=== PATIENT | female | born 1975 | race Caucasian/White ===

== ENCOUNTER → 2018-02-09 | Outpatient (CLI) | payer OTHER ==
[2015-09-28 12:09] VITALS: BP 135/84
--- NOTE | 2018-02-09 10:13 | RAD ---
MRI Lumbar Spine without contrast History: Chronic pain, bilateral leg radiculopathy Technique: Multiplanar, multi sequential noncontrast MR imaging was performed of the lumbar spine. Contrast: None Comparison: None Findings: There is motion degradation. Lumbar vertebral body stature is overall maintained. There is negligible grade 1 anterior spondylolisthesis at L5-S1. There is mild degenerative disc disease L5-S1. There is also degenerative disc disease with associated degenerative endplate change at T11-T12, fairly prominent endplate edema at this level. There is no fluid in the intervertebral disc space. Conus terminates at the L1 level. There is trace L5-S1 endplate edema. T11-12: This level was not included on the axial images. There is minimal posterior disc osteophyte complex with mild indentation upon the ventral thecal sac. There is also facet degenerative change and buckling of the ligamentum flavum at this level greater on the right contributing to moderate posterior narrowing of the right neural foramen, very mild posterior narrowing on the left. L2-L3: Spinal canal and neural foramina are adequate. There is mild to moderate facet hypertrophic change. L3-L4: There is moderate facet degenerative change and mild buckling of the ligamentum flavum. Neural foramina and spinal canal are adequate. L4-L5: There is moderate facet hypertrophic change and mild buckling of the ligamentum flavum. There is mild narrowing of the far lateral recesses greater on the left. Neural foramina are adequate. L5-S1: There is moderate to severe left greater than right facet degenerative change. Spinal canal is adequate. There is disc osteophyte complex and protrusion in the inferior left neural foramen, moderate to severe narrowing of the left neural foramen with contact of the exiting left L5 nerve root. There is minimal narrowing of the inferior right neural foramen. Impression: 1. There is moderate to severe narrowing of the left L5-S1 neural foramen with contact exiting left L5 nerve root. There is minimal narrowing of the right L5-S1 neural foramen. 2. There is no significant lumbar spinal stenosis, minimal narrowing of the far lateral recesses greater on the left L4-5. 3. There is multilevel lumbar facet degenerative change, negligible anterior spondylolisthesis L5-S1. 4. There is degenerative disc disease with associated prominent endplate edema at T11-12. There is narrowing of the posterior right T11-12 neural foramen due to facet degenerative change and buckling of the ligamentum flavum. Electronically signed by: Mani Estrada MD (02/09/2018 10:09 AM) [id number]
== END | disposition home or self-care (01) ==
LOC: MRI 09:01
PROVIDERS: ATTEND Family Medicine
DX: M48.07 Spinal stenosis, lumbosacral region (principal); M51.37 Other intervertebral disc degeneration, lumbosacral region; M48.04 Spinal stenosis, thoracic region; M47.817 Spondylosis without myelopathy or radiculopathy, lumbosacral region; M25.78 Osteophyte, vertebrae; R60.0 Localized edema
CPT/HCPCS: 72148

== ENCOUNTER → 2019-11-20 | Outpatient (CLI) | payer MEDICAID ==
[2015-09-28 12:09] VITALS: BP 135/84
--- NOTE | 2019-11-20 11:35 | RAD ---
MRI Lumbar Spine without contrast History: Lumbar radiculopathy right greater than left Technique: Multiplanar, multi sequential noncontrast MR imaging was performed of the lumbar spine. Comparison: February 09, 2018 Findings: There is motion degradation. Lumbar vertebral body stature is maintained. There is again negligible anterior spondylolisthesis L5-S1. There is again mild L5-S1 degenerative disc disease. There is again degenerative endplate change eccentric to the right at L5-S1, also to a greater degree at T11-T12 at which there is some associated endplate edema as seen previously. There is nonspecific edema posterior subcutaneous fat of the lower back. Conus terminates near L1. T11-12: This level was not included on the axial images. There is again minimal disc osteophyte complex and bulge slightly indenting the ventral thecal sac without significant spinal stenosis. Facet degenerative change contributes to likely at least moderate narrowing of the right neural foramen, likely mild narrowing on the left. L1-2, L2-3: These levels were not included on the axial images, neural foramina and spinal canal not significantly narrowed. L3-L4: There is facet degenerative change and buckling of the ligamentum flavum. Neural foramina and spinal canal are overall adequate. L4-L5: There is again moderate facet degenerative change and buckling of the ligamentum flavum. There is again mild narrowing of the far lateral recesses greater on the left. Neural foramina are overall adequate. L5-S1: There is again moderate to severe facet degenerative change. There is a minimal disc osteophyte complex. Spinal canal is not significantly narrowed. There is mild narrowing of the right neural foramen greater distally, also contact undersurface exiting right L5 nerve root in the proximal extraforaminal region by minimal disc osteophyte complex. There is again moderate to severe narrowing of the left neural foramen greater distally with contact undersurface exiting left L5 nerve root by disc osteophyte complex and protrusion. Impression: 1. Findings are similar compared with previous February 2018 exam. There is no new significant lumbar spinal stenosis, similar minimal narrowing of the far lateral recesses at L4-5. There is again mild L5-S1 degenerative disc disease, to a greater degree at T11-12 at which there is again endplate edema. There is again left greater than right L5-S1 neural foramina compromise with contact exiting L5 nerve roots greater on the left as described. Electronically signed by: Mani Estrada MD (11/20/2019 11:31 AM) [id number]
--- NOTE | 2019-11-20 12:56 | RAD ---
EXAM: MRI LEFT KNEE DATE: 11/20/2019 11:15 AM CLINICAL INDICATION: MEDIAL LEFT KNEE PAIN POST FALL THIS WINTER COMPARISON: None. TECHNIQUE: Multiplanar, multisequence MRI of the left knee was performed without contrast. FINDINGS: This exam is limited by motion artifact despite repeating sequences. No knee joint effusion. No Estes's cyst. The ACL and PCL are intact. The MCL, fibular collateral ligament, biceps femoris, IT band and popliteus are intact, normal in signal and morphology. Mild patellar tilt and lateral patellar tracking. Extensor mechanism is intact. Medial meniscus: Intact Lateral meniscus: Intact T1 marrow signal is grossly preserved. No evidence for fracture or osteonecrosis. Articular cartilage is grossly preserved. IMPRESSION: 1. Within the constraints of motion artifact, no MRI evidence for internal derangement. Specifically no evidence for fracture. 2. Mild lateral patellar tracking with patellar tilt. Electronically signed by: Dirk Drake MD (11/20/2019 12:53 PM) [id number]
== END | disposition home or self-care (01) ==
LOC: MRI 09:48
PROVIDERS: ATTEND Orthopaedic Surgery
DX: M25.562 Pain in left knee (principal); M43.17 Spondylolisthesis, lumbosacral region; M51.37 Other intervertebral disc degeneration, lumbosacral region; M25.78 Osteophyte, vertebrae; M47.27 Other spondylosis with radiculopathy, lumbosacral region
CPT/HCPCS: 72148; 73721

== ENCOUNTER → 2020-02-09 | Outpatient (CLI) | payer MEDICAID ==
[2015-09-28 12:09] VITALS: BP 135/84
[~2020-02-09] MED LIST: IBUP-1060 PO; IOHEXOL 180 MG/ML 10 ML VIAL. ONE; methylPREDNISolone ACETATE 40 MG/ML VIAL. ONE; methylPREDNISolone ACETATE 80 MG/ML VIAL. ONE
--- NOTE | 2020-02-09 10:45 | PDOC1 ---
INITIAL PAIN CONSULT DATE OF SERVICE: DOS: DATE: 02/09/20 TIME: 10:39 CHIEF COMPLAINT: Chief Complaint: Low back and right lower extremity pain HISTORY OF PRESENT ILLNESS: 44-year-old female presents history of pain low back bilateral lower extremities right greater than left for about 2 years. Patient reports no specific injury or accident that she is aware of the pain is been getting worse for about 2 yea rs gradually increasing radiating across the low back into the bilateral lower extremities posterior gluteus posterior thigh posterior calf and lateral thigh on the right side. Patient reports it is getting worse with time is described as stabbing throbbing shooting burning and cramping aching across the low back and radiating to the lower extremities. Patient reports it wakes her from sleep at night least once or twice does not affect her bowel bladder control it does affect ability to walk with significant fatigability in the lower extremities with no muscle or motor loss. Patient rates her disability rating 0-10 10 being the worst is a 9 with him home responsibilities 7 with recreation social activity occupation and sexual behavior 5 with self-care and life support activities. She did have an MRI scan of the lumbar spine showing similar findings 2 in February 2018 exam with L4-5 showing moderate facet degenerative change and buckling of ligamentum flavum with mild narrowing the far lateral recesses greater on the left L5-S1 shows moderate to severe facet degenerative change with minimal disc osteophyte complex mild narrowing of the right neural foramen greater distally also contacting the undersurface exiting right L5 nerve root in the proximal extraforaminal region. 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 Extraocular movements are intact and symmetrical. Oral cavity: Mucous membranes moist and pink. Dentition is intact. NECK: Shows anterior throat supple without palpable lymphadenopathy noted. Swallow reflex symmetrical. CHEST: Shows normal on inspection. Breath sounds are clear bilaterally, no rales rhonchi or wheezes auscultated. HEART: Shows S1, S2 clear. No murmurs auscultated. ABDOMEN: Soft, nontender, nondistended ,obese. No palpable organomegaly is noted. No rebound or guarding demonstrated. BACK: Shows spine grossly in the midline. Normal-appearing cervical lordotic curvature. There is slightly increased thoracic kyphosis, some minor flattening of the lumbar lordotic curvature. Lumbar paraspinous muscles show symmetrical on inspection, on palpation shows some moderate tenderness diffusely throughout the upper, middle and lower distribution of the paraspinous muscles bilaterally, but without specific trigger points, without radiation of pain. The patient has good rotational motion of the lumbar spine, both laterally as well as extension and flexion without significant difficulty. No tenderness over the spinous processes, sacrum or sacroiliac regions. EXTREMITIES: Lower extremities show deep tendon reflexes 2+ in the patellar and tendo calcaneus tendons. Motor exam is 4 on a scale of 5 with right dorsiflexion, extension, quadriceps and hamstring flexion and 5/5 on the left. Peripheral pulses are 1+ posterior tibial. No peripheral edema is noted bilaterally. Lower extremities are warm and dry to touch, equal in color and appearance. Straight leg raise noted to be positive on the right about 40 degrees, left side is negative. Gaenslen's and Jeff's maneuvers are negative as well. The patient is able to stand, stand on her toes without difficulty or loss of balance walks with a normal-appearing gait does not appear to favor the right or left lower extremity significantly and is not use any assistive devices to ambulate.. SKIN: Shows warm and dry, good turgor. No edema. No sores, rashes or bruising throughout. IMPRESSION: Impression: 44-year-old female with 2-year history of increasing pain low back bilateral lower extremities right greater than left in a radicular fashion MRI scan lumbar spine as noted Arthritis Hepatitis C Cigarette smoking Plan: Options were discussed with patient including conservative medical management physical therapies interventional techniques and she like to pursue interventional techniques. We discussed a lumbar epidural steroid injection using description as well as anatomical model to describe the procedure. Risks were discussed including but not limited to: Bleeding, infection, possibility of epidural hematoma and subsequent neurological compromise, dural puncture, headaches, spinal cord and/or nerve damage, side effects of steroid medication, and poor results regarding pain control. Patient understands wished to proceed. Patient return to clinic in approximate 2 weeks for follow-up was counseled as to return appointment activity level and side effects to be aware of. Procedure is lumbar epidural steroid injection under local anesthetic using sterile prep and drape at the L5-S1 level using C-arm fluoroscopic guidance in both AP and lateral views medications injected is 120 mg Depo-Medrol + 10 mL preservative-free normal saline and 2 mL contrast- condition at discharge is stable patient tolerated procedure well had no complications. LAKESHA ESPINOSA MD Feb 09, 2020 10:45
== END | disposition home or self-care (01) ==
LOC: PNCL 09:45
PROVIDERS: ATTEND Anesthesiology
DX: M54.5 Low back pain (principal); M79.604 Pain in right leg; B19.20 Unspecified viral hepatitis C without hepatic coma; M19.90 Unspecified osteoarthritis, unspecified site; Z87.891 Personal history of nicotine dependence; Z79.899 Other long term (current) drug therapy
CPT/HCPCS: 62323; J1030; J1040; Q9965

== ENCOUNTER → 2020-03-20 | Outpatient (CLI) | payer MEDICAID ==
[2015-09-28 12:09] VITALS: BP 135/84
[~2020-03-20] MED LIST changes: +ARIP30TA4 PO; +CLON0.5T PO; +CLON2TAB PO; +CONTRAST GIVEN. MC PRN; +GADOTERATE 5 MMOL/10ML VIAL. IVP ONE; -IOHEXOL 180 MG/ML 10 ML VIAL. ONE; +IOHEXOL 300 MG/ML 50 ML VIAL. INT ART ONE; +QUET50TA5 PO; -methylPREDNISolone ACETATE 40 MG/ML VIAL. ONE; -methylPREDNISolone ACETATE 80 MG/ML VIAL. ONE
--- NOTE | 2020-03-20 12:43 | RAD ---
EXAMINATION: MR ARTHROGRAM RIGHT HIP CLINICAL HISTORY: Right hip pain concerning for labral tear TECHNIQUE: Routine hip MRI arthrogram protocol. Procedural portion of the arthrogram reported separately. COMPARISON: Right hip radiographs 03/06/2020 FINDINGS: Prominent motion artifact on multiple sequences limits evaluation. Right Hip: No discrete labral tear visualized, however, several tear is not excluded given degree of patient motion artifact. No full-thickness chondral defect. No acute fracture. No avascular necrosis. Tendons: Intact. No significant tendinosis appreciated on limited evaluation. Muscles: Within normal limits. Bones/Marrow: No acute fracture or suspicious marrow replacing lesion. IMPRESSION: No discrete labral tear or significant abnormality in the right hip on limited evaluation as described. Electronically signed by: Mushtaq Teresa DO (03/20/2020 12:40 PM) [id number]
--- NOTE | 2020-03-20 13:17 | RAD ---
EXAM: Fluoroscopically guided right hip injection for MR arthrography. HISTORY: Right hip pain. TECHNIQUE: The risks and benefits of the procedure were discussed with the patient and written and verbal consent were obtained. A time out procedure was performed. Fluoroscopic imaging of the right hip was performed. The overlying skin was sterilely prepped and infiltrated with 1% lidocaine for local anesthesia. A 22-gauge spinal needle was then advanced into the joint space under fluoroscopic guidance. Intra-articular positioning positioning was confirmed with a small injection of iodinated contrast. 12 mL of 1:200 dilution gadolinium contrast with saline and iodinated contrast was injected under fluoroscopic control. The gadolinium contrast agent utilized was 0.1 mL of Clariscan. Instrumentation was withdrawn and a sterile dressing placed. There were no immediate complications. The patient was transferred to the MR suite for additional imaging. Fluoroscopy time 0.6 minutes. One image was obtained. Refer to the MR report for additional detail. IMPRESSION: Successful fluoroscopically guided right hip injection for MR arthrography. Please refer to the separate MR report for additional detail. Electronically signed by: Rashard Borjas MD (03/20/2020 1:14 PM) [id number]
== END | disposition home or self-care (01) ==
LOC: RAD 09:58
PROVIDERS: ATTEND Orthopaedic Surgery
DX: M25.551 Pain in right hip (principal); F17.210 Nicotine dependence, cigarettes, uncomplicated; Z79.899 Other long term (current) drug therapy; Z72.89 Other problems related to lifestyle
CPT/HCPCS: 27093; 73722; 77002; A9575; Q9967; 73525

== ENCOUNTER → 2020-03-26 | Outpatient (CLI) | payer MEDICAID ==
[2015-09-28 12:09] VITALS: BP 135/84
[~2020-03-26] MED LIST changes: -CONTRAST GIVEN. MC PRN; -GADOTERATE 5 MMOL/10ML VIAL. IVP ONE; +IOHEXOL 180 MG/ML 10 ML VIAL. ONE; -IOHEXOL 300 MG/ML 50 ML VIAL. INT ART ONE; +methylPREDNISolone ACETATE 40 MG/ML VIAL. ONE; +methylPREDNISolone ACETATE 80 MG/ML VIAL. ONE
--- NOTE | 2020-03-26 11:02 | PDOC ---
Progress Note - Pain Clinic Date of Service: DOS: DATE: 03/26/20 TIME: 11:00 Diagnosis: Dx: Lumbar radiculopathy with lumbar degenerative disc disease History or Present Illness: HPI: 44-year-old female returns follow-up status post lumbar epidural steroid injection x1. Patient reports about 70% improvement for the first few weeks still doing much better with the low back and some pain in her left greater than right hip and lower extremity returning over the past few days. Patient ports pain is a 10 on scale 10 is worst average and least over the past few days and is a 10 today in the left low back and leg patient ports aching shooting tingling burning stabbing can be severe and unbearable at times worse with walking standing changing positions better with sitting or laying down initially she was doing much better with walking and doing household activities work activities traveling with greater ease and comfort. Patient reports no new motor or sensory deficits no new bowel or bladder incontinence or other complaints. Physical Exam: VS: Blood pressure is 131/87 pulse 74 respirations 18 temperature 98.1 F height is 5 feet 3 inches weight is 244 PE: PHYSICAL EXAMINATION: GENERAL: The patient is awake, alert, oriented, appropriate, very pleasant demeanor HEENT: Shows normocephalic, atraumatic. Extraocular movements are intact and symmetrical. NECK: Shows anterior throat supple without palpable lymphadenopathy noted. Swallow reflex symmetrical. CHEST: Shows normal on inspection. Breath sounds are clear bilaterally. HEART: Shows S1, S2 clear. No murmurs auscultated. ABDOMEN: Soft, nontender, nondistended, obese. No palpable organomegaly is noted. No rebound or guarding demonstrated. BACK: Shows spine grossly in the midline. Normal-appearing cervical lordotic curvature. There is slightly increased thoracic kyphosis, some minor flattening of the lumbar lordotic curvature. Lumbar paraspinous muscles show symmetrical on inspection, on palpation shows some moderate tenderness diffusely throughout the upper, middle and lower distribution of the paraspinous muscles bilaterally, but without specific trigger points, without radiation of pain. The patient has good rotational motion of the lumbar spine, both laterally as well as extension and flexion without significant difficulty. No tenderness over the spinous processes, sacrum or sacroiliac regions. EXTREMITIES: Lower extremities show deep tendon reflexes 2+ in the patellar and tendo calcaneus tendons. Motor exam is 4 on a scale of 5 with right dorsiflexion, extension, quadriceps and hamstring flexion and 5/5 on the left. Peripheral pulses are 1+ posterior tibial. No peripheral edema is noted bilaterally. Lower extremities are warm and dry to touch, equal in color and appearance. SKIN: Shows warm and dry, good turgor. No edema. No sores, rashes or bruising throughout. Procedure: Procedure: Options were discussed with the patient. Patient chart was reviewed as her current medication regimen updated current review of systems updated today as well. We will proceed with a second in the series lumbar epidural steroid injection today with fluoroscopic guidance. Risks were discussed including but not limited to: Bleeding, infection, possibility of epidural hematoma and subsequent neurological compromise, dural puncture, headaches, spinal cord and/or nerve damage, side effects of steroid medication, and poor results regarding pain control. Patient understands wished to proceed. Patient return to clinic in approximate 2 weeks for follow-up was counseled as to return appointment activity level and side effects to be aware of. Medication Injected: Med Injected: Procedure is lumbar epidural steroid injection under local anesthetic using sterile prep and drape at the L5-S1 level using C-arm fluoroscopic guidance in both AP and lateral views medications injected is 120 mg Depo-Medrol + 10 mL preservative-free normal saline and 2 mL contrast- condition at discharge is stable patient tolerated procedure well had no complications. Condition at Discharge: Condition at Discharge: Condition at discharge stable, patient tolerated procedure well and had no complications. LAKESHA ESPINOSA MD Mar 26, 2020 11:02
== END | disposition home or self-care (01) ==
LOC: PNCL 10:17
PROVIDERS: ATTEND Anesthesiology
DX: M51.16 Intervertebral disc disorders with radiculopathy, lumbar region (principal); F17.210 Nicotine dependence, cigarettes, uncomplicated; Z79.899 Other long term (current) drug therapy; Z72.89 Other problems related to lifestyle
CPT/HCPCS: 62323; J1030; J1040; Q9965